=== PATIENT | male | born 1990 | race African-American/Black ===

== ENCOUNTER 2021-07-03 13:56 | Emergency (ER) | payer SELFPAY ==
[~2021-07-03] VITALS: Ht 180.3 cm; Wt 95.0 kg
[2021-07-03] MEDS ORDERED: CETIRIZINE HCL 10 MG TABLET. PO STA (14:16)
[2021-07-03] MEDS ORDERED: predniSONE 20 MG TABLET PO ONE (14:30)
[2021-07-03] MEDS ORDERED: IPRATRPIUM/ALBUTEROL 0.5/2.5MG 3 ML NEBU. NEB ONE (14:30)
--- NOTE | 2021-07-03 14:56 | RAD ---
EXAMINATION: XR CHEST 1V CLINICAL HISTORY: Cough. EXAM DATE/TIME: 07/03/2021 2:37 PM COMPARISON: 03/30/2008 FINDINGS: Lines, Tubes, and Devices: None. Cardiomediastinal Silhouette: Within normal limits. Lungs and Pleura: No evidence of focal airspace consolidation, pleural effusion, or pneumothorax. Bones and Soft Tissues: No acute osseous abnormality. IMPRESSION: No evidence of acute cardiopulmonary abnormality. Electronically signed by: Carlos Jaramillo DO (07/03/2021 2:54 PM) [place]
[2021-07-03 15:14] LABS: INFLUENZA A PATIENT NEGATIVE (NEGATIVE); INFLUENZA B PATIENT NEGATIVE (NEGATIVE)
--- NOTE | 2021-07-03 16:02 | PHYS DOC ---
Past Medical History Past Medical History: Asthma Past Surgical History: No Surgical History General Adult EDM: Chief Complaint: SHORTNESS OF BREATH HPI: HPI: Patient is a 31 year old male patient presented to the ED today complaining of shortness of breath, cough and nasal congestion, wheezing, symptoms for 4 days. Denies any fever. Reports history of asthma. States he tried using his inhaler with no relief Review of Systems: Review of Systems: Constitutional: Denies fever or chills. [] Eyes: Denies change in visual acuity. [] HENT: Reports nasal congestion Respiratory: Reports cough, shortness of breath, wheezing Cardiovascular: Denies chest pain or edema. [] GI: Denies abdominal pain, nausea, vomiting, bloody stools or diarrhea. [] : Denies dysuria. [] Musculoskeletal: Denies back pain or joint pain. [] Integument: Denies rash. [] Neurologic: Denies headache, focal weakness or sensory changes. [] Psychiatric: Denies depression or anxiety. [] Heart Score: C/O Chest Pain: N/A Risk Factors: Risk Factors: DM, Current or recent (<one month) smoker, HTN, HLP, family history of CAD, obesity. Risk Scores: Score 0 - 3: 2.5% MACE over next 6 weeks - Discharge Home Score 4 - 6: 20.3% MACE over next 6 weeks - Admit for Clinical Observation Score 7 - 10: 72.7% MACE over next 6 weeks - Early Invasive Strategies Current Medications: Current Medications Medications (Trade) Dose Ordered Sig/Jimmy Start Time Stop Time Status Last Admin Dose Admin Albuterol/ Ipratropium (Duoneb) 3 ml 1X ONCE 07/03/21 14:30 07/03/21 14:46 DC 07/03/21 14:50 3 ML Cetirizine HCl (ZyrTEC) 10 mg 1X STAT 07/03/21 14:16 07/03/21 14:46 DC 07/03/21 15:19 10 MG Prednisone (Prednisone) 60 mg 1X ONCE 07/03/21 14:30 07/03/21 14:46 DC 07/03/21 15:19 60 MG Allergies: Allergies: Allergies Coded Allergies Type Severity Reaction Last Updated Verified guaifenesin Allergy Intermediate 07/03/21 Yes Physical Exam: PE: Constitutional: Well developed, well nourished, no acute distress, non-toxic appearance. [] HENT: Normocephalic, atraumatic, bilateral external ears normal, oropharynx moist, no oral exudates, nose normal. [] Eyes: PERRLA, EOMI, conjunctiva normal, no discharge. [] Neck: Normal range of motion, no tenderness, supple, no stridor. [] Cardiovascular:Heart rate regular rhythm, no murmur [] Lungs & Thorax: Diffuse wheezing to posterior and anterior lung bases Abdomen: Bowel sounds normal, soft, no tenderness, no masses, no pulsatile masses. [] Skin: Warm, dry, no erythema, no rash. [] Back: No tenderness, no CVA tenderness. [] Extremities: No tenderness, no cyanosis, no clubbing, ROM intact, no edema. [] Neurologic: Alert and oriented X 3, normal motor function, normal sensory function, no focal deficits noted. [] Psychologic: Affect normal, judgement normal, mood normal. [] Current Patient Data: Labs: Laboratory Tests Test 07/03/21 14:48 Influenza Type A Antigen Negative (NEGATIVE) Influenza Type B Antigen Negative (NEGATIVE) SARS-CoV-2 Antigen (Rapid) Negative (NEGATIVE) Vital Signs: Vital Signs Date Time Temp Pulse Resp B/P (MAP) Pulse Ox O2 Delivery O2 Flow Rate FiO2 07/03/21 14:52 98 Room Air 07/03/21 14:20 98.9 79 20 138/77 (97) 98.9 EKG: EKG: [] Radiology/Procedures: Radiology/Procedures: []PROCEDURE: PORTABLE CHEST 1V EXAMINATION: XR CHEST 1V CLINICAL HISTORY: Cough. EXAM DATE/TIME: 07/03/2021 2:37 PM COMPARISON: 03/30/2008 FINDINGS: Lines, Tubes, and Devices: None. Cardiomediastinal Silhouette: Within normal limits. Lungs and Pleura: No evidence of focal airspace consolidation, pleural effusion, or pneumothorax. Bones and Soft Tissues: No acute osseous abnormality. IMPRESSION: No evidence of acute cardiopulmonary abnormality. Electronically signed by: Carlos Reddy DO (07/03/2021 2:54 PM) [facility] DICTATED and SIGNED BY: CARLOS REDDY DO DATE: 07/03/21 8686 Course & Med Decision Making: Course & Med Decision Making Pertinent Labs and Imaging studies reviewed. (See chart for details) This a 31-year-old male patient with history of asthma presenting today with shortness of breath, wheezing, cough, nasal congestion, symptoms for 4 days. O2 sats 97%, patient is afebrile, heart rate is normal Patient was given a DuoNeb treatment, prednisone, feeling better. Chest x-ray is negative, negative rapid COVID and rapid influenza test. Discharged with albuterol inhaler, prednisone, provided instructions to follow-up with his PCP Yogi Disclaimer: Yogi Disclaimer: This electronic medical record was generated, in whole or in part, using a voice recognition dictation system. Departure Departure Impression: Primary Impression: Asthma exacerbation Qualified Codes: J45.901 - Unspecified asthma with (acute) exacerbation Additional Impression: URI (upper respiratory infection) Qualified Codes: J06.9 - Acute upper respiratory infection, unspecified Disposition: 01 HOME / SELF CARE / HOMELESS Condition: STABLE Referrals: NO PCP (PCP) follow up with your doctor in 1-2 weeks Patient Instructions: Asthma Attacks, Prevention, Upper Respiratory Infection, Adult, [id number] Additional Instructions: You were evaluated in the emergency room, your chest x-ray is negative for any acute findings, your rapid COVID and influenza tests are negative. Use the prescribed medications as ordered. Follow-up with your doctor in the course of this week or next week, come back to the ED at any point symptoms worsen Scripts Cetirizine Hcl (CETIRIZINE HCL) 10 Mg Tablet 1 TAB PO DAILY, #30 TAB 0 Refills Prov: CAMMY MAGANA APRN 07/03/21 Albuterol Sulfate (Proair Hfa) 8.5 Gm Hfa.aer.ad 2 PUFF IH PRN Q4-6HRS PRN for wheezing for 21 Days, #1 INHALER 0 Refills Prov: CAMMY MAGANA [employer] 07/03/21 Prednisone (PREDNISONE) 50 Mg Tablet 1 TAB PO DAILY, #5 TAB Prov: CAMMY MAGANA APRN 07/03/21 CAMMY MAGANA [employer] July 03, 2021 16:02
[2021-07-03] MEDS ORDERED: ALBU2.5V8 IH (16:09)
[2021-07-03] MEDS ORDERED: PRED50TA PO (16:09)
[2021-07-03] MEDS ORDERED: CETI10TA16 PO (16:09)
[2021-07-03 16:20] VITALS: BP 128/80
== END 2021-07-03 16:20 | disposition home or self-care (01) ==
LOC: ER 13:56
DX: J45.901 Unspecified asthma with (acute) exacerbation (principal); Z20.822 Contact with and (suspected) exposure to COVID-19; J06.9 Acute upper respiratory infection, unspecified; Z88.8 Allergy status to other drugs, medicaments and biological substances
CPT/HCPCS: 71045; 87428; 94640; 99284; J7512